=== PATIENT | male | born 1990 | race Two or more races ===

== ENCOUNTER 2017-10-09 22:28 | Emergency (ER) | payer SELFPAY ==
[2017-10-09 22:30] VITALS: RESP 18; O2SAT 98
--- NOTE | 2017-10-10 00:14 | ED PDOC ---
HPI: Psych/Substance Abuse Time Seen by Provider: 10/09/17 22:35 Chief Complaint (Nursing): Substance Abuse Chief Complaint (Provider): Substance Abuse ED Caveat: Intoxicated History Per: Patient History/Exam Limitations: intoxication Onset/Duration Of Symptoms: Days (x1) Associated Symptoms: Anger (violent), Agitation Additional History Per: Family Additional Complaint(s): Eze Gibson is a 27 year old male with a past medical history of anxiety and drug abuse, brought to the emergency department via EMS for substance abuse. Patient reportedly drank today and used drugs. At home, patient was agitated and violent towards family, who called 911. Upon arrival, patient is not cooperative with providing history and is acting aggressive towards staff. PMD: Provider CONRAD Past Medical History Reviewed: Historical Data, Nursing Documentation, Vital Signs, Unable To Obtain Vital Signs: Last Vital Signs Temp 97.7 F 10/09/17 22:28 Pulse 125 H 10/09/17 22:28 Resp 18 10/09/17 22:28 BP 129/89 10/09/17 22:28 Pulse Ox 98 10/09/17 22:28 - Family History Family History: States: Unknown Family Hx - Allergies Allergies/Adverse Reactions: Allergies Allergy/AdvReac Type Severity Reaction Status Date / Time Penicillins Allergy RASH Verified 10/09/17 22:28 Review of Systems Review Of Systems: ROS cannot be obtained secondary to pt's inabilty to answer questions. Physical Exam - Reviewed Nursing Documentation Reviewed: Yes Vital Signs Reviewed: Yes - Physical Exam Appears: Positive for: Non-toxic, No Acute Distress Head Exam: Positive for: ATRAUMATIC, NORMAL INSPECTION, NORMOCEPHALIC Skin: Positive for: Normal Color, Warm, Dry Eye Exam: Positive for: EOMI, Normal appearance, PERRL Neck: Positive for: Normal, Painless ROM, Supple Cardiovascular/Chest: Positive for: Regular Rate, Rhythm. Negative for: Murmur Respiratory: Positive for: Normal Breath Sounds. Negative for: Accessory Muscle Use, Respiratory Distress Gastrointestinal/Abdominal: Positive for: Normal Exam, Bowel Sounds, Soft. Negative for: Tenderness Extremity: Positive for: Normal ROM. Negative for: Deformity Neurologic/Psych: Positive for: Alert (and awake), Mood/Affect (agitated) - Laboratory Results Result Diagrams: 10/10/17 00:17 10/10/17 00:17 - ECG O2 Sat by Pulse Oximetry: 98 (RA) Pulse Ox Interpretation: Normal Medical Decision Making Medical Decision Making: Time: 22:50 Patient appears agitated, is a danger to himself and others. 4 point restraints ordered. Initial Plan: --Acetaminophen --Alcohol serum --BMP --Urine drug screen --Salicylate --CBC w/ differential --Ativan 2 mg IM --Haldol 5 mg IM --Pending clinical sobriety Time: 6:23 Patient referred to black ash worker, who will perform evaluation. Time: 07:00 Patient is endorsed to Dr. Karl Talavera at this time. Pending crisis evaluation and final disposition. Scribe Attestation: Documented by Darlin Kaufman, acting as a scribe for Floyd Dillard MD Provider Scribe Attestation: All medical record entries made by the Scribe were at my direction and personally dictated by me. I have reviewed the chart and agree that the record accurately reflects my personal performance of the history, physical exam, medical decision making, and the department course for this patient. I have also personally directed, reviewed, and agree with the discharge instructions and disposition. Disposition - Clinical Impression Clinical Impression: Substance abuse, Depression - Patient ED Disposition Is Patient to be Admitted: No Counseled Patient/Family Regarding: Studies Performed, Diagnosis, Need For Followup - Disposition Referrals: [facility]Outside] formerly [facility] [Outside] Disposition: Transfer of Care Disposition Time: 07:00 Condition: STABLE Additional Instructions: follow up as instructed Instructions: Depression (ED), Polysubstance Abuse (ED) Forms: [employer] (Lao) Patient Signed Over To: Karl Talavera Handoff Comments: Pending crisis evaluation
[2017-10-10 01:14] LABS: BASO # 0.1 K/uL (0.0-0.2); BASO % 1.3 % (0.0-2.0); EOS % 0.4 % (0.0-4.0); HEMOGLOBIN 13.8 g/dL (12.0-18.0); LYMPH # 1.9 K/uL (1.0-4.3); LYMPH % 21.7 % (20.0-40.0); MEAN CELL VOLUME 90.2 fl (80.0-94.0); MEAN CORPUSCULAR HGB CONC 33.3 g/dL (33.0-37.0); MEAN PLATELET VOLUME 9.3 fl (7.2-11.7); MONO # 0.9 K/uL (0.0-0.8); MONO % 10.8 % (0.0-10.0); NEUT # 5.8 K/uL (1.8-7.0); NEUT % 65.8 % (50.0-75.0); NRBC % 0.1 % (0.0-0.0); RBC 4.6 Mil/uL (4.40-5.90); RED CELL DISTRIBUTION WIDTH 12.9 % (11.5-14.5); WHITE BLOOD COUNT 8.8 K/uL (4.8-10.8)
[2017-10-10 01:27] LABS: BLOOD UREA NITROGEN 12 mg/dl (9-20); CALCIUM 9.2 mg/dL (8.4-10.2); GFR AFRICAN-AMERICAN > 60; GFR NON-AFRICAN AMERICAN > 60
[2017-10-10 01:30] LABS: BARBITURATES, UR NEGATIVE (NEGATIVE); OPIATES, UR NEGATIVE (NEGATIVE); PHENCYCLIDINE, UR NEGATIVE (NEGATIVE)
[2017-10-10 01:31] LABS: ACETAMINOPHEN < 10.0 ug/ml (10.0-30.0); SALICYLATE < 1.0 mg/dl
[2017-10-10 01:32] LABS: BENZODIAZEPINES, UR POSITIVE (NEGATIVE)
--- NOTE | 2017-10-10 08:31 | ED PDOC ---
- Laboratory Results Result Diagrams: 10/10/17 00:17 10/10/17 00:17 - ECG O2 Sat by Pulse Oximetry: 98 (RA) Pulse Ox Interpretation: Normal Medical Decision Making Medical Decision Making: Time: 699 --Patient endorsed to provider by Dr. Floyd Dillard. Pending crisis evaluation. Time: 826 --Upon crisis evaluation by Dr. Thorpe, patient is clinically sober, medically stable and requires no further treatment in the ED at this time. Patient will be discharged home. Counseling was provided and all questions were answered regarding diagnosis and need for follow up with outpatient clinic. There is agreement to discharge plan. Return if symptoms persist or worsen. Clinical Impression: Substance abuse Scribe Attestation: Documented by Codie Moe, acting as a scribe for Karl Talavera MD. Provider Scribe Attestation: All medical record entries made by the Scribe were at my direction and personally dictated by me. I have reviewed the chart and agree that the record accurately reflects my personal performance of the history, physical exam, medical decision making, and the department course for this patient. I have also personally directed, reviewed, and agree with the discharge instructions and disposition. Disposition Doctor Will See Patient In The: Office Counseled Patient/Family Regarding: Diagnosis - Clinical Impression Clinical Impression: Substance abuse - POA Present On Arrival: None - Disposition Disposition: Routine/Home Disposition Time: 08:27 Condition: GOOD Forms: [employer] (Sinhala)
[2017-10-10 08:35] VITALS: BP 130/73; PULSE 100; TEMP 97.8
== END 2017-10-10 09:28 | disposition home or self-care (01) ==
LOC: H.ER 22:28
DX: F19.10 Other psychoactive substance abuse, uncomplicated (principal); Z00.8 Encounter for other general examination; F32.9 Major depressive disorder, single episode, unspecified; Z88.0 Allergy status to penicillin
CPT/HCPCS: 80048; 85025; 96372; 99285; G0480; J1630; J2060